=== PATIENT | female | born 1990 | race Asian ===

== ENCOUNTER 2024-09-19 16:57 | Emergency (ER) | payer BC ==
[~2024-09-19] VITALS: Ht 162.6 cm; Wt 73.0 kg
[2024-09-19] MEDS ORDERED: LIDOCAINE HCL 1% 20 ML VIAL ONE (17:40)
[2024-09-19] MEDS: LIDOCAINE HCL 1% 20 ML VIAL TP ONE (17:58)
[2024-09-19] MEDS ORDERED: NEOMY/BACITRA/POLYMYXIN B OINT UD PACKET TP ONE (18:21)
[2024-09-19] MEDS: NEOMY/BACITRA/POLYMYXIN B OINT UD PACKET TP ONE (18:21)
[2024-09-19 18:29] VITALS: BP 109/72; O2SAT 100
== END 2024-09-19 18:30 | disposition home or self-care (01) ==
LOC: ER 16:57
DX: S61.132A Puncture wound without foreign body of left thumb with damage to nail, initial encounter (principal); Z88.7 Allergy status to serum and vaccine; W23.0XXA Caught, crushed, jammed, or pinched between moving objects, initial encounter; Y93.89 Activity, other specified; Y92.89 Other specified places as the place of occurrence of the external cause; Y99.8 Other external cause status
CPT/HCPCS: 99284; 11730; J3490; A4606; A4663